=== PATIENT | male | born 1950 | race Caucasian/White ===

== ENCOUNTER 2017-03-02 10:11 | Emergency (ER) | payer OTHER ==
[2017-03-02 10:33] VITALS: RESP 16; TEMP 97.6; O2SAT 99; BMI 21.6
--- NOTE | 2017-03-02 10:48 | ED PDOC ---
Arrival/HPI - General Chief Complaint: Back Pain Time Seen by Provider: 03/02/17 10:24 Historian: Patient - History of Present Illness Narrative History of Present Illness (Text): 03/02/17 10:46 A 66 year old male , who denies any past medical history, presents to the emergency department complaining of intermittent lower back pain for the past 2 weeks. Patient reports taking Alleve and using heat pads, with no relief. Patient denies any injury, trauma, fever, chills, nausea, vomiting, abdominal pain, urinary symptoms, chest pain, shortness of breath, headache, dizziness or any other complaints. PMD: None Time/Duration: Other (2 weeks) Symptom Course: Intermittent Quality: Other Context: Home Past Medical History - Provider Review Nursing Documentation Reviewed: Yes - Psychiatric Hx Substance Use: No - Surgical History Other/Comment: Hernia Sx Family/Social History - Physician Review Nursing Documentation Reviewed: Yes Family/Social History: No Known Family HX Smoking Status: Never Smoked Hx Alcohol Use: No Hx Substance Use: No Allergies/Home Meds Allergies/Adverse Reactions: Allergies No Known Allergies Allergy (Unverified 03/02/17 10:35) Review of Systems - Physician Review All systems were reviewed & negative as marked: Yes - Review of Systems Constitutional: absent: Fevers, Night Sweats Respiratory: absent: SOB Cardiovascular: absent: Chest Pain Gastrointestinal: absent: Abdominal Pain, Nausea, Vomiting Genitourinary Male: absent: Dysuria, Frequency, Hematuria, Urinary Output Changes Musculoskeletal: Back Pain Neurological: absent: Headache, Dizziness Physical Exam Vital Signs Reviewed: Yes Vital Signs Temp Pulse Resp BP Pulse Ox 03/02/17 12:12 82 16 162/88 H 99 03/02/17 10:28 97.6 F 76 16 172/90 H 99 Temperature: Afebrile Blood Pressure: Hypertensive Pulse: Regular Respiratory Rate: Normal Appearance: Positive for: Well-Appearing, Non-Toxic, Comfortable Pain Distress: None Mental Status: Positive for: Alert and Oriented X 3 - Systems Exam Head: Present: Atraumatic, Normocephalic Pupils: Present: PERRL Extroacular Muscles: Present: EOMI Conjunctiva: Present: Normal Mouth: Present: Moist Mucous Membranes Neck: Present: Normal Range of Motion Respiratory/Chest: Present: Clear to Auscultation, Good Air Exchange. No: Respiratory Distress, Accessory Muscle Use Cardiovascular: Present: Regular Rate and Rhythm, Normal S1, S2. No: Murmurs Abdomen: Present: Normal Bowel Sounds. No: Tenderness, Distention, Peritoneal Signs Back: Present: Paraspinal Tenderness (Paraspinal lumbar tenderness). No: Midline Tenderness, Pain with Leg Raise Upper Extremity: Present: Normal Inspection. No: Cyanosis, Edema Lower Extremity: Present: Normal Inspection. No: Edema Neurological: Present: GCS=15, CN II-XII Intact, Speech Normal Skin: Present: Warm, Dry, Normal Color. No: Rashes Psychiatric: Present: Alert, Oriented x 3, Normal Insight, Normal Concentration Medical Decision Making ED Course and Treatment: 03/02/17 10:46 Impression: A 66 year old female with lower back pain Differential Diagnosis included but are not limited to: Lumbar stain Plan: -- LS spine xray -- Toradol -- Reassess and disposition Progress Notes: Report Date : 03/02/2017 12:26:26 PROCEDURE: Radiographs of the Lumbar Spine. Dictator : Sarah Brennan MD IMPRESSION: No acute fracture, spondylolysis or spondylolisthesis. Multilevel degenerative disc disease, worse at L4-5. On re-evaluation, patient feels better and is in no acute distress. I have discussed the results and plan with the patient, who expresses understanding. Patient in agreement with plan to be discharged home. Patient is stable for discharge. Patient was instructed to follow up with physician or return if symptoms worsen or new concerning symptoms arise. - RAD Interpretation Radiology Orders: 03/02/17 10:35 LS SPINE WITH OBL > 18 YRS OLD [RAD] Stat - Medication Orders Current Medication Orders: Discontinued Medications Ketorolac Tromethamine (Toradol) 60 mg IM STAT STA Stop: 03/02/17 10:36 Last Admin: 03/02/17 11:14 Dose: 60 mg MAR Pain Assessment Document 03/02/17 11:14 MS (Rec: 03/02/17 11:14 MS [id number]) Pain Reassessment Is this a pain reassessment? No Sleep Is patient sleeping during reassessment? No Presence of Pain Presence of Pain Yes Pain Scale Used Pain Scale Used Numeric Location Upper or Lower Lower Pain Location Body Site Back Description Description Intermittent Intensity of Pain at present 7 Pain Behavior Grasping Site Aggravating Factors Changing Position Alleviating Factors/Management Medication Techniques Heat IM Administration Charges Document 03/02/17 11:14 MS (Rec: 03/02/17 11:14 MS [id number]) Injection Site MAR Injection Site Right Gluteus Medius Charges for Administration # of IM Administrations 1 - Scribe Statement The provider has reviewed the documentation as recorded by the Apurvaibe Jemima Quiles Provider Scribe Attestation: All medical record entries made by the Scribe were at my direction and personally dictated by me. I have reviewed the chart and agree that the record accurately reflects my personal performance of the history, physical exam, medical decision making, and the department course for this patient. I have also personally directed, reviewed, and agree with the discharge instructions and disposition. Disposition/Present on Arrival - Present on Arrival Any Indicators Present on Arrival: No History of DVT/PE: No History of Uncontrolled Diabetes: No Urinary Catheter: No History of Decub. Ulcer: No History Surgical Site Infection Following: None - Disposition Have Diagnosis and Disposition been Completed?: Yes Diagnosis: Back strain Disposition: HOME/ ROUTINE Disposition Time: 12:15 Patient Plan: Discharge Condition: IMPROVED Discharge Instructions (ExitCare): Back Pain (ED) Additional Instructions: Mr Gannon, thank you for letting us take care of you today. Your provider was Dr. Rivera You were treated for Back Strain. The emergency medical care you received today was directed at your acute symptoms. If you were prescribed any medication, please fill it and take as directed. It may take several days for your symptoms to resolve. Return to the Emergency Department if your symptoms worsen, do not improve, or if you have any other problems. Please contact your doctor or call one of the physicians/clinics you have been referred to that are listed on the Patient Visit Information form that is included in your discharge packet. Bring any paperwork you were given at discharge with you along with any medications you are taking to your follow up visit. Our treatment cannot replace ongoing medical care by a primary care provider (PCP) outside of the emergency department. Thank you for allowing the [facility] team to be part of your care today. If you had an X-Ray or CT scan: A Radiologist will review the ED reading if any change in treatment is needed we will contact you. If you had a blood, urine, or wound culture: It will take several days for the results, if any change in treatment is needed we will contact you. If you had an STI test: It will take 48 hours for the results. Please call after 1 week if you have not heard back. Prescriptions: Ibuprofen [Motrin] 600 mg PO Q6 PRN #30 tab PRN Reason: Pain, Moderate (4-7) Referrals: [facility] [place]] - Follow up with primary Forms: [employer] (Slovak), WORK NOTE
[2017-03-02 12:20] VITALS: BP 162/88; PULSE 82
--- NOTE | 2017-03-02 12:28 | RAD ---
PROCEDURE: Radiographs of the Lumbar Spine. HISTORY: Back pain, r/o fx COMPARISON: No prior. FINDINGS: BONES: There is normal alignment of the lumbar vertebral bodies. There is normal lumbar lordosis. There is no acute fracture, spondylolysis or spondylolisthesis. There is diffuse bone demineralization. DISC SPACES: There is multilevel degenerative disc disease with large anterior osteophytes, reduced disc heights and multilevel facet arthropathy, worse at L4-5. OTHER FINDINGS: None. IMPRESSION: No acute fracture, spondylolysis or spondylolisthesis. Multilevel degenerative disc disease, worse at L4-5.
== END 2017-03-02 12:22 | disposition home or self-care (01) ==
LOC: ED 10:11
DX: S39.012A Strain of muscle, fascia and tendon of lower back, initial encounter (principal); X58.XXXA Exposure to other specified factors, initial encounter
CPT/HCPCS: 72110; 96372; 99282; J1885

== ENCOUNTER 2017-07-24 11:29 | Emergency (ER) | payer OTHER ==
[2017-07-24 11:29] VITALS: BMI 21.6
[2017-07-24 11:51] VITALS: RESP 18; TEMP 98.4
--- NOTE | 2017-07-24 12:43 | ED PDOC ---
Arrival/HPI - General Historian: Patient - History of Present Illness Time/Duration: Prior to Arrival <Robert Buckner - Last Filed: 07/24/17 13:32> - History of Present Illness Symptom Onset: Gradual Symptom Course: Unchanged Quality: Aching Activities at Onset: Light Context: Home <Radha Hawkins - Last Filed: 07/24/17 15:01> - General Time Seen by Provider: 07/24/17 11:30 - History of Present Illness Narrative History of Present Illness (Text): 07/24/17 12:44 Patient is a 67 M with a history of lower back pain who presents with complaints of lower back pain which started this morning when he bent down to grab a large jug of water. During this time patient denied any neurological deficits; bowel/urinary incontinence, spinal tenderness, saddle paresthesias, dizziness, falls. Patient states it is similar to the back pain he presented with on his last EM visited which was eventually cured with motrin and light activity. (Robert Buckner) Past Medical History - Provider Review Nursing Documentation Reviewed: Yes - Psychiatric Hx Substance Use: No - Surgical History Other/Comment: umbilical hernia repair - Anesthesia Hx Anesthesia: Yes Hx Anesthesia Reactions: No Hx Malignant Hyperthermia: No <Robert Buckner - Last Filed: 07/24/17 13:32> Family/Social History - Physician Review Nursing Documentation Reviewed: Yes Family/Social History: Unknown Family HX Smoking Status: Never Smoked Hx Alcohol Use: No Hx Substance Use: No <Robert Buckner - Last Filed: 07/24/17 13:32> Allergies/Home Meds <Robert Buckner - Last Filed: 07/24/17 13:32> <Radha Hawkins - Last Filed: 07/24/17 15:01> Allergies/Adverse Reactions: Allergies No Known Allergies Allergy (Unverified 03/02/17 10:35) Review of Systems - Physician Review All systems were reviewed & negative as marked: Yes - Review of Systems Constitutional: absent: Fatigue, Fevers, Night Sweats Eyes: Normal ENT: Normal Respiratory: Normal. absent: SOB, Cough Cardiovascular: Normal. absent: Chest Pain, Palpitations Gastrointestinal: absent: Abdominal Pain, Diarrhea, Nausea Genitourinary Male: Normal. absent: Dysuria, Urinary Output Changes Musculoskeletal: Back Pain. absent: Joint Swelling Skin: absent: Rash, Skin Lesions Neurological: Normal. absent: Headache, Dizziness Endocrine: Normal Hemo/Lymphatic: Normal Psychiatric: Normal. absent: Anxiety <Robert Buckner - Last Filed: 07/24/17 13:32> Physical Exam Vital Signs Reviewed: Yes Temperature: Afebrile Blood Pressure: Normal Pulse: Regular Respiratory Rate: Normal Appearance: Positive for: Well-Appearing, Non-Toxic, Comfortable Pain Distress: None Mental Status: Positive for: Alert and Oriented X 3 - Systems Exam Head: Present: Atraumatic, Normocephalic Pupils: Present: PERRL Extroacular Muscles: Present: EOMI Conjunctiva: Present: Normal Mouth: Present: Moist Mucous Membranes Neck: Present: Normal Range of Motion Respiratory/Chest: Present: Clear to Auscultation. No: Respiratory Distress, Accessory Muscle Use, Wheezes, Rhonchi Cardiovascular: Present: Regular Rate and Rhythm, Normal S1, S2 Abdomen: Present: Normal Bowel Sounds. No: Tenderness, Distention Upper Extremity: Present: Normal Inspection. No: Edema Lower Extremity: Present: Normal Inspection. No: Edema Neurological: Present: GCS=15, CN II-XII Intact, Speech Normal Skin: Present: Warm, Normal Color Psychiatric: Present: Alert, Oriented x 3, Normal Insight, Normal Concentration <Robert Buckner - Last Filed: 07/24/17 13:32> Vital Signs Temp Pulse Resp BP Pulse Ox 07/24/17 13:49 80 18 167/83 H 100 07/24/17 12:38 81 18 167/78 H 99 07/24/17 11:29 98.4 F 88 18 170/94 H 100 Medical Decision Making Re-evaluation Time: 13:15 <Robert Buckner - Last Filed: 07/24/17 13:32> <Radha Hawkins - Last Filed: 07/24/17 15:01> ED Course and Treatment: 07/24/17 12:48 Will adminsiter flexeril and toradol. Re-assess BP after pain medications. If improving will discharge patient with prescriptions for motrin and flexeril. 07/24/17 13:27 Patient's lower back pain has improved with medications, will discharge with flexeril 5 mg and Motrin 600 mg (Robert Buckner) 07/24/17 12:52 67 year old male presents to the Emergency department for lower back discomfort. In agreement with resident note, which includes further HPI details. Patient was seen and evaluated with resident, came up with plan and treatment together. (Radha Hawkins) - Medication Orders Current Medication Orders: Discontinued Medications Cyclobenzaprine HCl (Flexeril) 10 mg PO STAT STA Stop: 07/24/17 12:34 Last Admin: 07/24/17 12:53 Dose: 10 mg Ketorolac Tromethamine (Toradol) 30 mg IM STAT STA Stop: 07/24/17 12:38 <Robert Buckner - Last Filed: 07/24/17 13:32> - PA / SUPPORT DIRECTOR / Resident Statement MD/ has reviewed & agrees with the documentation as recorded. MD/ has examined the patient and agrees with the treatment plan. - Scribe Statement The provider has reviewed the documentation as recorded by the Scribe <Radha Hawkins - Last Filed: 07/24/17 15:01> - Scribe Statement Lizet Burciaga. All medical record entries made by the Scribe were at my direction and personally dictated by me. I have reviewed the chart and agree that the record accurately reflects my personal performance of the history, physical exam, medical decision making, and the department course for this patient. I have also personally directed, reviewed, and agree with the discharge instructions and disposition. (Radha Hawkins) Disposition/Present on Arrival - Present on Arrival Any Indicators Present on Arrival: No History of DVT/PE: No History of Uncontrolled Diabetes: No Urinary Catheter: No History of Decub. Ulcer: No History Surgical Site Infection Following: None - Disposition Have Diagnosis and Disposition been Completed?: Yes Disposition Time: 13:28 Patient Plan: Discharge <Robert Buckner - Last Filed: 07/24/17 13:32> <Radha Hawkins - Last Filed: 07/24/17 15:01> - Disposition Diagnosis: Lower back pain Disposition: HOME/ ROUTINE Condition: GOOD Discharge Instructions (ExitCare): Low Back Pain (DC) Additional Instructions: Mr. Choudhary, thank you for letting us take care of you today.The emergency medical care you received today was directed at your acute symptoms. If you were prescribed any medication, please fill it and take as directed. It may take several days for your symptoms to resolve. Return to the Emergency Department if your symptoms worsen, do not improve, or if you have any other problems. Please contact your doctor or call one of the physicians/clinics you have been referred to that are listed on the Patient Visit Information form that is included in your discharge packet. Bring any paperwork you were given at discharge with you along with any medications you are taking to your follow up visit. Our treatment cannot replace ongoing medical care by a primary care provider (PCP) outside of the emergency department. Thank you for allowing the [facility] team to be part of your care today. Aside from your lower back pain you were noted to have High Blood Pressure. Please establish care and follow up with a PMD at the [facility]. In the mean time be sure to maintain a diet low in sodium; 2 g sodium diet. Prescriptions: Cyclobenzaprine [Flexeril] 5 mg PO PRN PRN #5 tab PRN Reason: Pain, Severe (8-10) Ibuprofen [Motrin Tab] 600 mg PO Q6 PRN #30 tab PRN Reason: Pain, Moderate (4-7) Referrals: [facility] [Provider Group] - Follow up with primary [facility], [Primary Care Provider] - Follow up with primary Forms: [employer] (Swedish)
[2017-07-24 13:50] VITALS: BP 167/83; PULSE 80; O2SAT 100
== END 2017-07-24 13:49 | disposition home or self-care (01) ==
LOC: ED 11:29
DX: M54.5 Low back pain (principal)
CPT/HCPCS: 99282; J1885